=== PATIENT | female | born 1950 | race Caucasian/White ===

== ENCOUNTER 2018-10-29 16:30 | Inpatient (IN) ==
--- NOTE | 2018-10-29 17:08 | ED ---
HPI General Chief Complaint: Shortness of Breath/Dyspnea Stated Complaint: SOB X1wk Time Seen by Provider: 10/29/18 16:52 Source: patient Mode of arrival: ambulatory Limitations: no limitations History of Present Illness The patient is a 68-year-old female who presents to the emergency department via private vehicle for shortness of breath. The patient notes a one -week history of increasing shortness of breath. The patient initially had a decreased appetite and thought it was secondary to a recent change in her diabetic medications that she injects every Saturday. The patient noted decreased appetite last week and, therefore, did not use her medication this past Saturday. However, the patient's shortness of breath and poor appetite continued. The patient now notes shortness of breath that is worse with exertion, notes that she is lightheaded and dizzy when standing upright, and feels like she is going to "pass out ". The patient also endorses subjective fever at home that started 2 days ago with body aches. The patient thought she had influenza at that time. She notes a dry and minimal nonproductive cough. The patient denies any history of COPD, tobacco use, congestive heart failure, pulmonary embolism, DVT, or recent lower extremity edema. The patient denies any vomiting, diarrhea, abdominal pain, or dysuria. She does complain of mild anorexia. MD Complaint: Reports shortness of breath Onset (ago): week(s) Context: Reports occurred during exertion Severity: moderate Consistency/Duration: constant and progressively worsening Relieving factors: rest Exacerbating factors: exertion Associated symptoms: Reports fever, dizziness and lightheadedness Treatment prior to arrival: Reports none Related Data Home oxygen amount: none Home Medications Medication Instructions Recorded Confirmed atorvastatin 40 mg PO DAILY 10/29/18 10/29/18 cetirizine 10 mg PO DAILY 10/29/18 10/29/18 cholecalciferol (vitamin D3) 4,000 unit PO DAILY 10/29/18 10/29/18 [Vitamin D3] cyanocobalamin (vitamin B-12) 1,000 mcg PO DAILY 10/29/18 10/29/18 [Vitamin B-12] dextroamphetamine-amphetamine 10 mg PO BID 10/29/18 10/29/18 [Adderall] fesoterodine [Toviaz] 8 mg PO DAILY 10/29/18 10/29/18 fluticasone 2 spray INTRANASAL DAILY 10/29/18 10/29/18 losartan 50 mg PO DAILY 10/29/18 10/29/18 magnesium 400 mg PO DAILY 10/29/18 10/29/18 metformin 1,000 mg PO BID 10/29/18 10/29/18 semaglutide [Ozempic] 0.5 mg SUBCUT QWEEK 10/29/18 10/29/18 Allergies Allergy/AdvReac Type Severity Reaction Status Date / Time Penicillins Allergy Anaphylaxis Verified 10/29/18 16:50 Review of Systems ROS: all other systems reviewed are negative [facility] Medical History Medical History Diabetes (Acute) H/O multiple concussions (Acute) Leg fracture, right (Acute) Transverse myelitis (Acute) Surgical History Surgical History History of 3 sections (Acute) History of neck surgery (Acute) History of total bilateral knee replacement (TKR) (Acute) Hx of cataract surgery (Acute) Social History Social History Substance History: No History of Abuse Second Hand Smoke Exposure: No Smoking Status: Never smoker How Often Do You Have a Drink Containing Alcohol: 2 to 4 times a month Recent Travel in [facility] within the Last 8 Weeks: No Recent Out of Country Travel within the Last 8 Weeks: No Exam Narrative Exam Narrative: GENERAL: Awake, alert, pleasant 68-year-old female who appears her stated age and is in no acute respiratory distress. SKIN: Focused skin assessment warm/dry. HEAD: Atraumatic. Normocephalic. EYES: Pupils equal and round. No scleral icterus. No injection or drainage. No obvious pallor. ENT: No nasal bleeding or discharge. Dry mucous membranes. NECK: Trachea midline. No JVD. CARDIOVASCULAR: Regular, tachycardic with a heart rate of 110. RESPIRATORY: No accessory muscle use. Clear to auscultation. Breath sounds equal bilaterally. GASTROINTESTINAL: Abdomen soft, non-tender, nondistended. No rebound tenderness. MUSCULOSKELETAL: No obvious deformities. No clubbing. No cyanosis. No edema. NEUROLOGICAL: Awake and alert. No obvious cranial nerve deficits. Motor grossly within normal limits. Normal speech. PSYCHIATRIC: Appropriate mood and affect; insight and judgment normal. Course Initial Documented Vital Signs Pulse Rate 98 H 10/29/18 16:42 Respiratory Rate 18 12/26/18 16:42 Blood Pressure 90/53 L 10/29/18 16:42 Pulse Oximetry 99 10/29/18 16:42 Last Documented Vital Signs Temperature 98.2 F 10/29/18 17:00 Pulse Rate 92 H 10/29/18 18:08 Respiratory Rate 18 10/29/18 18:08 Blood Pressure 96/55 L 10/29/18 18:08 Pulse Oximetry 96 10/29/18 18:08 Medical Decision Making MDM Narrative Medical decision making narrative: IV was established, labs are drawn and sent, and the patient was placed on cardiac telemetry monitoring and continuous pulse oximetry monitoring. Orthostatic vital signs were obtained. Lactic acid, blood culture, and CBC were sent to lab. The was administered 1 L of IV fluids. UA was sent to lab. The patient's white count and lactic acid were within normal limits. BUN was elevated at 36, creatinine elevated at 2.0, orthostatics were positive. Chest x-ray is negative for pneumonia. Influenza screen is negative. Lactic acid was 2.0. The patient has dehydration with acute kidney injury and positive orthostatics with presyncopal symptoms. Therefore, patient will be 23-hour observation for IV fluids. UA is pending to evaluate for possible underlying pyelonephritis. I discussed the patient with Dr. King who agrees with 23-hour observation. The patient is comfortable with this plan of care and disposition. Medical Screen Exam Complete: Yes Emergency Medical Condition: Yes Lab Data Lab results reviewed: Yes I reviewed the patient's lab results. Result diagrams: 10/29/18 17:05 10/29/18 17:05 Lab Results 10/29/18 10/29/18 10/29/18 Range/Units 17:00 17:05 17:05 CBC w Diff Auto diff final WBC 8.3 (4.0-11.0) th/mm3 RBC 4.85 (4.00-5.30) mil/mm3 Hgb 13.9 (11.6-15.3) gm/dL Hct 42.6 (35.0-46.0) % MCV 87.8 (80.0-100.0) fL MCH 28.8 (27.0-34.0) pg MCHC 32.7 (32.0-36.0) % RDW 13.0 (11.6-17.2) % Plt Count 262 (150-450) th/mm3 MPV 9.3 (7.0-11.0) fL Neut % (Auto) 54.2 (16.0-70.0) % Lymph % (Auto) 33.3 (9.0-44.0) % White % (Auto) 9.9 H (0.0-8.0) % Eos % (Auto) 1.0 (0.0-4.0) % Baso % (Auto) 1.6 (0.0-2.0) % Neut # (Auto) 4.5 (1.8-7.7) th/mm3 Lymph # (Auto) 2.8 (1.0-4.8) th/mm3 White # (Auto) 0.8 (0.0-0.9) th/mm3 Eos # (Auto) 0.1 (0.0-0.4) th/mm3 Baso # (Auto) 0.1 (0.0-0.2) th/mm3 WBC Differential . Differential Comment . PT 10.8 (9.8-11.6) sec INR 1.1 Ratio APTT 29.1 (23.4-31.7) sec D-Dimer Quant (PE/DVT) 0.40 (0.00-0.50) mg/L FEU Sodium (136-145) meq/L Potassium (3.5-5.1) meq/L Chloride (98-107) meq/L Carbon Dioxide (21.0-32.0) meq/L Anion Gap (5-15) meq/L BUN (7-18) mg/dL Creatinine (0.50-1.00) mg/dL Estimated GFR (>89) mL/min Random Glucose (74-106) mg/dL Lactic Acid 2.0 (0.4-2.0) mmol/L Calcium (8.5-10.1) mg/dL Magnesium (1.5-2.5) mg/dL Total Bilirubin (0.2-1.0) mg/dL AST (15-37) U/L ALT (10-53) U/L Alkaline Phosphatase (45-117) U/L Total Creatine Kinase (26-192) U/L CK-MB (CK-2) (0.5-3.6) ng/mL Troponin I (0.02-0.05) ng/mL B-Natriuretic Peptide (0-100) pg/mL Total Protein (6.4-8.2) g/dL Albumin (3.4-5.0) g/dL 10/29/18 10/29/18 Range/Units 17:05 17:05 CBC w Diff WBC (4.0-11.0) th/mm3 RBC (4.00-5.30) mil/mm3 Hgb (11.6-15.3) gm/dL Hct (35.0-46.0) % MCV (80.0-100.0) fL MCH (27.0-34.0) pg MCHC (32.0-36.0) % RDW (11.6-17.2) % Plt Count (150-450) th/mm3 MPV (7.0-11.0) fL Neut % (Auto) (16.0-70.0) % Lymph % (Auto) (9.0-44.0) % White % (Auto) (0.0-8.0) % Eos % (Auto) (0.0-4.0) % Baso % (Auto) (0.0-2.0) % Neut # (Auto) (1.8-7.7) th/mm3 Lymph # (Auto) (1.0-4.8) th/mm3 White # (Auto) (0.0-0.9) th/mm3 Eos # (Auto) (0.0-0.4) th/mm3 Baso # (Auto) (0.0-0.2) th/mm3 WBC Differential Differential Comment PT (9.8-11.6) sec INR Ratio APTT (23.4-31.7) sec D-Dimer Quant (PE/DVT) (0.00-0.50) mg/L FEU Sodium 136 (136-145) meq/L Potassium 4.1 (3.5-5.1) meq/L Chloride 104 (98-107) meq/L Carbon Dioxide 20.0 L (21.0-32.0) meq/L Anion Gap 12 (5-15) meq/L BUN 36 H (7-18) mg/dL Creatinine 2.00 H (0.50-1.00) mg/dL Estimated GFR 25 L (>89) mL/min Random Glucose 91 (74-106) mg/dL Lactic Acid (0.4-2.0) mmol/L Calcium 9.4 (8.5-10.1) mg/dL Magnesium 1.9 (1.5-2.5) mg/dL Total Bilirubin 1.2 H (0.2-1.0) mg/dL AST 32 (15-37) U/L ALT 23 (10-53) U/L Alkaline Phosphatase 65 (45-117) U/L Total Creatine Kinase 126 (26-192) U/L CK-MB (CK-2) 1.3 (0.5-3.6) ng/mL Troponin I Less than 0.02 L (0.02-0.05) ng/mL B-Natriuretic Peptide 5 (0-100) pg/mL Total Protein 7.7 (6.4-8.2) g/dL Albumin 4.0 (3.4-5.0) g/dL Imaging Data Attestation: I personally reviewed and interpreted this imaging study as follows : Radiologist's impression: Chest X-Ray 10/29/18 17:02 CONCLUSION: No acute intrathoracic disease. ECG Data EKG Prior to Arrival: No Attestation: I personally reviewed and interpreted this ECG as follows: Interpretation: EKG reveals sinus rhythm with a rate of 98. No ectopy noted. Discharge Plan Discharge Disposition Patient Disposition: ED Admit(ED Internal Use Only) Discharge Condition Condition: Stable Discharge Order Discharge Orders: ED Use Only Admit Order (Routine); Ordered 10/29/18 Ordered By: Onel Duque Discharge Details Diagnosis: Acute kidney injury, Acute dehydration, Orthostatic hypotension, Pre-syncope Physicians Team ED Provider: Onel Duque Primary Care Provider: Primary Care Physici,Makayla Rxs /Orders / Referrals /Forms Prescriptions: No Action semaglutide [Ozempic] 1 mg/0.75 mL (2 mg/1.5 mL) Pen Injector 0.5 mg SUBCUT QWEEK RF: 0 losartan 50 mg Tablet 50 mg PO DAILY RF: 0 atorvastatin 40 mg Tablet 40 mg PO DAILY RF: 0 cetirizine 10 mg Tablet 10 mg PO DAILY RF: 0 dextroamphetamine-amphetamine [Adderall] 10 mg Tablet 10 mg PO BID RF: 0 cyanocobalamin (vitamin B-12) [Vitamin B-12] 1,000 mcg Tablet 1,000 mcg PO DAILY RF: 0 metformin 1,000 mg Tablet 1,000 mg PO BID RF: 0 fluticasone 50 mcg/actuation Fowler,Suspension 2 spray INTRANASAL DAILY RF: 0 magnesium 200 mg Tablet 400 mg PO DAILY RF: 0 fesoterodine [Toviaz] 8 mg Tablet Extended Release 24 Hr 8 mg PO DAILY RF: 0 cholecalciferol (vitamin D3) [Vitamin D3] 4,000 unit Capsule 4,000 unit PO DAILY RF: 0 Discharge Interventions Interventions: Vital Signs Last Done: 10/29/18 17:50 Status ED Status: Pending Admission
[2018-10-29] MEDS ORDERED: Sod Chloride 0.9% Inj 1,000 ML IV.SIG SCH ×2 (17:15→18:00)
[2018-10-29 17:25] LABS: Baso # (Auto) 0.1 th/mm3 (0.0-0.2); Baso % (Auto) 1.6 % (0.0-2.0); Eos # (Auto) 0.1 th/mm3 (0.0-0.4); Hematocrit 42.6 % (35.0-46.0); Hemoglobin 13.9 gm/dL (11.6-15.3); Lymph # (Auto) 2.8 th/mm3 (1.0-4.8); Lymph % (Auto) 33.3 % (9.0-44.0); Mean Corpuscular HGB Conc 32.7 % (32.0-36.0); Mean Corpuscular Hemoglobin 28.8 pg (27.0-34.0); Mean Corpuscular Volume 87.8 fL (80.0-100.0); Mean Platelet Volume 9.3 fL (7.0-11.0); Mono # (Auto) 0.8 th/mm3 (0.0-0.9); Mono % (Auto) 9.9 % (0.0-8.0); Neut # (Auto) 4.5 th/mm3 (1.8-7.7); Neut % (Auto) 54.2 % (16.0-70.0); Platelet Count 262 th/mm3 (150-450); Red Blood Count 4.85 mil/mm3 (4.00-5.30); White Blood Count 8.3 th/mm3 (4.0-11.0)
[2018-10-29 17:32] LABS: Chloride 104 meq/L (98-107); Potassium 4.1 meq/L (3.5-5.1); Sodium 136 meq/L (136-145)
--- NOTE | 2018-10-29 17:33 | XR ---
EXAM DATE: 10/29/2018 5:30 PM EST AGE/SEX: 68 years / Female INDICATIONS: Short of breath. CLINICAL DATA: This is the patient's initial encounter. Patient reports that signs and symptoms have been present for 1 week and indicates a pain score of 0/10. MEDICAL/SURGICAL HISTORY: None. None. COMPARISON: No prior exams available for comparison. FINDINGS: A single AP view of the chest demonstrates the lungs to be symmetrically aerated without evidence of mass, infiltrate or effusion. The cardiomediastinal contours are unremarkable. Osseous structures a re intact. CONCLUSION: No acute intrathoracic disease. Electronically signed by: Doron Reyes MD Board Certified Radiologist 10/29/2018 5:32 PM EST
[2018-10-29 17:36] LABS: Anion Gap 12 meq/L (5-15); Blood Urea Nitrogen 36 mg/dL (7-18); Calcium 9.4 mg/dL (8.5-10.1); Glucose,Random 91 mg/dL (74-106); Magnesium 1.9 mg/dL (1.5-2.5)
[2018-10-29 17:39] LABS: Alanine Aminotransferase 23 U/L (10-53); Aspartate Aminotransferase 32 U/L (15-37)
[2018-10-29 17:40] LABS: Glomerular Filtration Rate 25 mL/min (>89)
[2018-10-29 17:41] LABS: Total Protein 7.7 g/dL (6.4-8.2)
[2018-10-29 17:42] LABS: Alkaline Phosphatase 65 U/L (45-117); Creatine Kinase 126 U/L (26-192)
[2018-10-29 17:52] LABS: Activated Partial Thrombo Time 29.1 sec (23.4-31.7); INR 1.1 Ratio; Prothrombin Time 10.8 sec (9.8-11.6)
[2018-10-29 17:54] LABS: Creatine Kinase MB 1.3 ng/mL (0.5-3.6)
[2018-10-29 17:56] LABS: D-Dimer 0.4 mg/L FEU (0.00-0.50)
[2018-10-29] MEDS ORDERED: Acetaminophen 325 MG Tablet PO PRN ×2 (18:10→18:25)
[2018-10-29] MEDS ORDERED: Bisacodyl 10 MG Supp RECTAL PRN (18:10)
[2018-10-29] MEDS ORDERED: Dextrose 50% in Water 50 ML Vial IV.PUSH PRN (18:15)
[2018-10-29] MEDS ORDERED: Temazepam 15 MG Capsule PO PRN (18:39)
--- NOTE | 2018-10-29 18:48 | P.HPIM ---
History of Present Illness Primary Care Physician: No Primary Care Physician History of Present Illness: 60-year-old female with a history of transverse myelitis, diabetes mellitus, who presents with a 10-day history of decreased appetite, with a one-week history of progressively worsening fatigue, lightheadedness upon standing, generalized muscle aches, feeling cold with chills, shortness of breath. She denies any cough, denies any sore throat. denies any dysuria or urinary hesitancy. She reports very minimal by mouth intake of food and fluids. She took her first dose of Ozempic on e says this medication is supposed to be taken weekly, however due to the severe decrease in appetite she did not take her most recent dose. Review of Systems All other systems reviewed negative except as stated in [facility] - History History Provided By: Patient, Family Member - Medical History Medical History: Medical History (Last Reviewed 10/29/18 @ 18:37 by John King MD) Diabetes H/O multiple concussions Leg fracture, right Transverse myelitis - Surgical History Surgical History: Surgical History (Last Reviewed 10/29/18 @ 18:37 by John King MD) History of 3 sections History of neck surgery History of total bilateral knee replacement (TKR) Hx of cataract surgery - Family History Family History: Family History (Last Updated 10/29/18 @ 18:38 by John King MD) Father Diabetes Mother CHF (congestive heart failure) - Social History I have reviewed the patient's Social History: Yes - Tobacco History Second Hand Smoke Exposure: No Smoking Status: Never smoker - Alcohol History How Often Do You Have a Drink Containing Alcohol: 2 to 4 times a month - Substance Use History Substance History: No History of Abuse - Travel History Recent Travel in the [place] Within the Last 8 Weeks: No Recent Travel Out of the Country Within the Last 8 Weeks: No - Immunization History Tetanus Immunization: <5 Years Medications and Allergies Active Medications: Active Medications Acetaminophen (Tylenol) 650 mg PO Q4H PRN PRN Reason: Temp > 100.4 Al Hydroxide/Mg Hydroxide (Milk Of Magnesia Liq) 30 ml PO Q12H PRN PRN Reason: Mild Constipation Bisacodyl (Dulcolax Supp) 10 mg RECTAL DAILY PRN PRN Reason: SEVERE CONSITIPATION Cyanocobalamin (Vitamin B12) 1,000 mcg PO DAILY JINA Dextrose (D50w Vial) 50 ml IV.PUSH UNSCH PRN PRN Reason: PER HYPOGLYCEMIA PROTOCOL Glucagon (Glucagon Inj) 1 mg OTHER PRN PRN PRN Reason: for Hypoglycemia Protocol Sodium Chloride (Ns Inj) 1,000 mls @ 1,000 mls/hr IV.SIG BOLUS JINA Stop: 10/29/18 18:59 Last Admin: 10/29/18 18:01 Dose: 1,000 mls/hr Sodium Chloride (Ns Inj) 1,000 mls @ 150 mls/hr IV.CONT .[id number] [facility] Insulin Aspart (Novolog Insulin Correctional Sugar Inj) 0 unit SQ ACHS JINA; Protocol Lactulose (Lactulose Liq) 30 ml PO DAILY PRN PRN Reason: SEVERE CONSITIPATION Ondansetron HCl (Zofran Inj) 4 mg IV.PUSH Q6H PRN PRN Reason: NAUSEA OR VOMITING Sennosides (Senokot) 17.2 mg PO Q12H PRN PRN Reason: Moderate Constipation Sodium Chloride (Ns Flush) 2 ml IV.FLUSH BID JINA Sodium Chloride (Ns Flush) 2 ml IV.FLUSH PRN PRN PRN Reason: FLUSH AFTER USING IV ACCESS Allergies Allergy/AdvReac Type Severity Reaction Status Date / Time Penicillins Allergy Anaphylaxis Verified 10/29/18 16:50 Home Medications Medication Instructions Recorded Confirmed Type atorvastatin 40 mg PO DAILY 10/29/18 10/29/18 History cetirizine 10 mg PO DAILY 10/29/18 10/29/18 History cholecalciferol (vitamin D3) 4,000 unit PO DAILY 10/29/18 10/29/18 History [Vitamin D3] cyanocobalamin (vitamin B-12) 1,000 mcg PO DAILY 10/29/18 10/29/18 History [Vitamin B-12] dextroamphetamine-amphetamine 10 mg PO BID 10/29/18 10/29/18 History [Adderall] fesoterodine [Toviaz] 8 mg PO DAILY 10/29/18 10/29/18 History fluticasone 2 spray INTRANASAL DAILY 10/29/18 10/29/18 History losartan 50 mg PO DAILY 10/29/18 10/29/18 History magnesium 400 mg PO DAILY 10/29/18 10/29/18 History metformin 1,000 mg PO BID 10/29/18 10/29/18 History semaglutide [Ozempic] 0.5 mg SUBCUT QWEEK 10/29/18 10/29/18 History Exam Vital signs: Vital Signs 10/29/18 16:42 10/29/18 17:00 10/29/18 17:25 Temperature 98.2 F Pulse Rate 98 H 97 H 94 H Respiratory Rate 18 24 Blood Pressure 90/53 L 79/60 L 85/50 L Pulse Oximetry 99 99 99 10/29/18 17:32 10/29/18 17:50 10/29/18 18:08 Temperature Pulse Rate 93 H 95 H 92 H Respiratory Rate 18 18 Blood Pressure 85/57 L 96/55 L Pulse Oximetry 98 96 96 Intake & Output 10/28/18 10/29/18 10/29/18 18:59 06:59 18:59 Weight 65.5 kg Narrative: GENERAL: Patient sitting up in bed. Appears fatigued. She is alert and oriented x3. SKIN: Warm and dry. HEAD: Atraumatic. Normocephalic. EYES: Pupils equal and round. No scleral icterus. No injection or drainage. ENT: No nasal bleeding or discharge. Mucous membranes pink and moist. NECK: Trachea midline. No JVD. CARDIOVASCULAR: Regular rate and rhythm. RESPIRATORY: No accessory muscle use. Clear to auscultation. Breath sounds equal bilaterally. GASTROINTESTINAL: Abdomen soft, non-tender, nondistended. Hepatic and splenic margins not palpable. MUSCULOSKELETAL: Extremities without clubbing, cyanosis, or edema. No obvious deformities. NEUROLOGICAL: Awake and alert. No obvious cranial nerve deficits. Motor grossly within normal limits. Five out of 5 muscle strength in the arms and legs. Normal speech. PSYCHIATRIC: Appropriate mood and affect; insight and judgment normal. Results - Labs CBC & Chem 7: 10/29/18 17:05 10/29/18 17:05 Labs: Short CBC 10/29/18 Range/Units 17:05 WBC 8.3 (4.0-11.0) th/mm3 Hgb 13.9 (11.6-15.3) gm/dL Hct 42.6 (35.0-46.0) % Plt Count 262 (150-450) th/mm3 BMP 10/29/18 17:05 Sodium 136 Potassium 4.1 Chloride 104 Carbon Dioxide 20.0 L BUN 36 H Creatinine 2.00 H Calcium 9.4 Cardiac Enzymes 10/29/18 Range/Units 17:05 Total Creatine Kinase 126 (26-192) U/L CK-MB (CK-2) 1.3 (0.5-3.6) ng/mL Troponin I Less than 0.02 L (0.02-0.05) ng/mL Liver Function 10/29/18 Range/Units 17:05 Total Bilirubin 1.2 H (0.2-1.0) mg/dL AST 32 (15-37) U/L ALT 23 (10-53) U/L Alkaline Phosphatase 65 (45-117) U/L Albumin 4.0 (3.4-5.0) g/dL - Imaging Impressions Chest X-Ray 10/29/18 17:02 CONCLUSION: No acute intrathoracic disease. Caprini VTE Risk Assessment Caprini VTE Risk Assessment: Moderate/High Risk (score >= 2) Caprini Risk Assessment Model: Point Value = 1 Point Value = 2 Point Value = 3 Point Value = 5 Age 41-60 Minor surgery BMI > 25 kg/m2 Swollen legs Varicose veins or History of unexplained or recurrent spontaneous Oral contraceptives or hormone replacement Sepsis (< 1 month) Serious lung disease, including pneumonia (< 1 month) Abnormal pulmonary function Acute myocardial infarction Congestive heart failure (< 1 month) History of inflammatory bowel disease Medical patient at bed rest Age 61-74 Arthroscopic surgery Major open surgery (> 45 min) Laparoscopic surgery (> 45 min) Malignancy Confined to bed (> 72 hours) Immobilizing plaster cast Central venous access Age >= 75 History of VTE Family history of VTE Factor V Leiden Prothrombin [id number] Lupus anticoagulant Anticardiolipin antibodies Elevated serum homocysteine Heparin-induced thrombocytopenia Other congenital or acquired thrombophilia Stroke (< 1 month) Elective arthroplasty Hip, pelvis, or leg fracture Acute spinal cord injury (< 1 month) Prophylaxis Regimen: Total Risk Factor Score Risk Level Prophylaxis Regimen 0-1 Low Early ambulation 2 Moderate Order ONE of the following: *Sequential Compression Device (SCD) *Heparin 5000 units SQ BID 3-4 Higher Order ONE of the following medications: *Heparin 5000 units SQ TID *Enoxaparin/Lovenox 40 mg SQ daily (WT < 150 kg, CrCl > 30 mL/min) *Enoxaparin/Lovenox 30 mg SQ daily (WT < 150 kg, CrCl > 10-29 mL/min) *Enoxaparin/Lovenox 30 mg SQ BID (WT < 150 kg, CrCl > 30 mL/min) AND/OR *Sequential Compression Device (SCD) 5 or more Highest Order ONE of the following medications: *Heparin 5000 units SQ TID (Preferred with Epidurals) *Enoxaparin/Lovenox 40 mg SQ daily (WT < 150 kg, CrCl > 30 mL/min) *Enoxaparin/Lovenox 30 mg SQ daily (WT < 150 kg, CrCl > 10-29 mL/min) *Enoxaparin/Lovenox 30 mg SQ BID (WT < 150 kg, CrCl > 30 mL/min) AND *Sequential Compression Device (SCD) Assessment and Plan - Plan //Acute kidney injury //Severe dehydration with hypotension //Hypotension -Hold off on blood pressure medications. -Creatinine 2.0 from unknown baseline. -Likely dehydration is from decreased appetite from the liraglutide. -Hold off on amphetamines as well. = Fluid rehydration. If does not improve with rehydration, will check renal ultrasound. Monitor kidney function. //Diffuse muscle aches. Likely secondary to dehydration. CK within normal limits. Will hold off on statin. //Diabetes mellitus -Glucose within normal limits. Will place on insulin sliding scale and diabetic diet. //Overactive bladder. Will hold off on medication at this time. //Insomnia. Will start on insomnia medication as requested. Discussed Condition With: Patient, nurse, ED physician, daughter at bedside
[2018-10-29] MEDS: Sod Chloride 0.9% Inj 1,000 ML IV.CONT SCH (19:23)
[2018-10-29 21:35] LABS: Hemoglobin A1c 5.6 % (4.3-6.0)
[2018-10-29] MEDS: Insulin NovoLOG Aspart Correctional Sugar Inj SQ SCH (22:38)
[2018-10-30] MEDS: Sod Chloride 0.9% Inj 1,000 ML IV.CONT SCH ×2 (03:23→08:46)
--- NOTE | 2018-10-30 08:30 | ECG ---
Date Performed: 10/29/2018 Time Performed: 17:21:28 PTAGE: 68 years EKG: Sinus rhythm POSSIBLE ANTERIOR MYOCARDIAL INFARCTION BORDERLINE ECG NO PREVIOUS TRACING DOCTOR: Kelly Jim Interpretating Date/Time 10/30/2018 08:26:40
[2018-10-30] MEDS: Insulin NovoLOG Aspart Correctional Sugar Inj SQ SCH ×3 (08:46→17:16)
[2018-10-30 09:22] LABS: Baso # (Auto) 0.1 th/mm3 (0.0-0.2); Baso % (Auto) 1.9 % (0.0-2.0); Eos # (Auto) 0.1 th/mm3 (0.0-0.4); Eos % (Auto) 2.9 % (0.0-4.0); Hematocrit 34.7 % (35.0-46.0); Hemoglobin 11.4 gm/dL (11.6-15.3); Lymph # (Auto) 2.3 th/mm3 (1.0-4.8); Lymph % (Auto) 44.9 % (9.0-44.0); Mean Corpuscular HGB Conc 32.9 % (32.0-36.0); Mean Corpuscular Hemoglobin 28.8 pg (27.0-34.0); Mean Corpuscular Volume 87.4 fL (80.0-100.0); Mean Platelet Volume 8.9 fL (7.0-11.0); Mono # (Auto) 0.4 th/mm3 (0.0-0.9); Mono % (Auto) 8.8 % (0.0-8.0); Neut # (Auto) 2.1 th/mm3 (1.8-7.7); Neut % (Auto) 41.5 % (16.0-70.0); Platelet Count 196 th/mm3 (150-450); Red Blood Count 3.97 mil/mm3 (4.00-5.30)
[2018-10-30 09:34] VITALS: BP 115/55; RESP 16
[2018-10-30 10:07] LABS: Alanine Aminotransferase 21 U/L (10-53); Albumin 2.9 g/dL (3.4-5.0); Anion Gap 7 meq/L (5-15); Aspartate Aminotransferase 20 U/L (15-37); Blood Urea Nitrogen 24 mg/dL (7-18); Calcium 7.8 mg/dL (8.5-10.1); Carbon Dioxide 23.8 meq/L (21.0-32.0); Chloride 113 meq/L (98-107); Glomerular Filtration Rate 55 mL/min (>89); Glucose,Random 96 mg/dL (74-106); Potassium 3.9 meq/L (3.5-5.1); Sodium 144 meq/L (136-145); Total Protein 5.9 g/dL (6.4-8.2)
[2018-10-30 10:14] LABS: Alkaline Phosphatase 53 U/L (45-117)
[2018-10-30 10:20] LABS: Bilirubin,Urine Negative (Negative); Clarity,Urine Clear (Clear); Color,Urine Yellow (Yellw/Straw); Glucose,Urine (UA) Negative (Negative); Leukocyte Esterase,Urine Trace (Negative); Nitrite,Urine Positive (Negative); PH,Urine 5.5 (5.0-8.5); Urobilinogen,Urine 0.2 mg/dL (Less than 2)
[2018-10-30 10:25] LABS: Bacteria,Urine Few /hpf
--- NOTE | 2018-10-30 11:58 | P.PNIM ---
Subjective Interval history: Patient says she is feeling a lot better today. She feels her appetite has improved. Denies any chest pain shortness breath. Denies nausea or vomiting. Physical Exam Vital signs: Vital Signs 10/29/18 16:42 10/29/18 17:00 10/29/18 17:25 Temperature 98.2 F Pulse Rate 98 H 97 H 94 H Respiratory Rate 18 24 Blood Pressure 90/53 L 79/60 L 85/50 L Pulse Oximetry 99 99 99 10/29/18 17:32 10/29/18 17:50 10/29/18 18:08 Temperature Pulse Rate 93 H 95 H 92 H Respiratory Rate 18 18 Blood Pressure 85/57 L 96/55 L Pulse Oximetry 98 96 96 10/29/18 18:28 10/29/18 19:05 10/29/18 19:30 Temperature Pulse Rate 94 H 93 H Respiratory Rate 18 18 Blood Pressure 100/57 L 123/65 100/76 Pulse Oximetry 10/29/18 20:40 10/30/18 00:00 10/30/18 07:30 Temperature 96.6 F L 97.2 F L Pulse Rate 91 H 92 H Respiratory Rate 18 18 Blood Pressure 132/66 117/56 L Pulse Oximetry 100 99 98 10/30/18 09:33 Temperature 97.4 F L Pulse Rate 77 Respiratory Rate 16 Blood Pressure 115/55 L Pulse Oximetry 96 Intake & Output 10/29/18 10/30/18 10/30/18 18:59 06:59 18:59 Intake Total 3000 / 3000 1240 / 1240 Balance 3000 / 3000 1240 / 1240 Weight 65.5 kg 62.9 kg Intake: IV 3000 / 3000 1000 / 1000 NS Inj 1,000 ML @ 150 mls/hr IV 1000 / 1000 1000 / 1000 .CONT .Q6H40M JINA Rx#: [id number] NS Inj 1,000 ML @ 1000 mls/hr 1999 / 1999 IV.SIG BOLUS JINA Rx#:[id number] Oral 240 / 240 Other: # Voids 2 Date of Last Bowel Movement 10/29/18 Narrative: GENERAL: Patient sitting in bed. Appears comfortable. Alert and oriented x3. SKIN: Warm and dry. HEAD: Normocephalic. EYES: No scleral icterus. No injection or drainage. NECK: Supple, trachea midline. No JVD or lymphadenopathy. CARDIOVASCULAR: Regular rate and rhythm without murmurs, gallops, or rubs. RESPIRATORY: Breath sounds equal bilaterally. No accessory muscle use. GASTROINTESTINAL: Abdomen soft, non-tender, nondistended. MUSCULOSKELETAL: No cyanosis, or edema. BACK: Nontender without obvious deformity. No CVA tenderness. Results - Labs CBC & Chem 7: 10/30/18 08:20 10/30/18 08:20 Laboratory Results - last 24 hr 10/29/18 10/29/18 10/29/18 17:00 17:00 17:05 CBC w Diff Auto diff final WBC 8.3 RBC 4.85 Hgb 13.9 Hct 42.6 MCV 87.8 MCH 28.8 MCHC 32.7 RDW 13.0 Plt Count 262 MPV 9.3 Neut % (Auto) 54.2 Lymph % (Auto) 33.3 [place] % (Auto) 9.9 H Eos % (Auto) 1.0 Baso % (Auto) 1.6 Neut # (Auto) 4.5 Lymph # (Auto) 2.8 [place] # (Auto) 0.8 Eos # (Auto) 0.1 Baso # (Auto) 0.1 WBC Differential . Differential Comment . PT INR APTT D-Dimer Quant (PE/DVT) Sodium Potassium Chloride Carbon Dioxide Anion Gap BUN Creatinine Estimated GFR POC Glucose Random Glucose Hemoglobin A1c 5.6 Lactic Acid 2.0 Calcium Magnesium Total Bilirubin Direct Bilirubin Indirect Bilirubin AST ALT Alkaline Phosphatase Total Creatine Kinase CK-MB (CK-2) Troponin I B-Natriuretic Peptide Total Protein Albumin Urine Color Urine Clarity Urine pH Ur Specific [place] Urine Protein Urine Glucose (UA) Urine Ketones Urine Occult Blood Urine Nitrate Urine Bilirubin Urine Urobilinogen Ur Leukocyte Esterase Urine Bacteria Micro UA Comment Ur Microscopic Review Urine Culture Comments 10/29/18 10/29/18 10/29/18 17:05 17:05 17:05 CBC w Diff WBC RBC Hgb Hct MCV MCH MCHC RDW Plt Count MPV Neut % (Auto) Lymph % (Auto) [place] % (Auto) Eos % (Auto) Baso % (Auto) Neut # (Auto) Lymph # (Auto) [place] # (Auto) Eos # (Auto) Baso # (Auto) WBC Differential Differential Comment PT 10.8 INR 1.1 APTT 29.1 D-Dimer Quant (PE/DVT) 0.40 Sodium 136 Potassium 4.1 Chloride 104 Carbon Dioxide 20.0 L Anion Gap 12 BUN 36 H Creatinine 2.00 H Estimated GFR 25 L POC Glucose Random Glucose 91 Hemoglobin A1c Lactic Acid Calcium 9.4 Magnesium 1.9 Total Bilirubin 1.2 H Direct Bilirubin 0.3 H Indirect Bilirubin 0.9 H AST 32 ALT 23 Alkaline Phosphatase 65 Total Creatine Kinase 126 CK-MB (CK-2) 1.3 Troponin I Less than 0.02 L B-Natriuretic Peptide 5 Total Protein 7.7 Albumin 4.0 Urine Color Urine Clarity Urine pH Ur Specific [place] Urine Protein Urine Glucose (UA) Urine Ketones Urine Occult Blood Urine Nitrate Urine Bilirubin Urine Urobilinogen Ur Leukocyte Esterase Urine Bacteria Micro UA Comment Ur Microscopic Review Urine Culture Comments 10/29/18 10/30/18 10/30/18 22:37 00:04 07:00 CBC w Diff WBC RBC Hgb Hct MCV MCH MCHC RDW Plt Count MPV Neut % (Auto) Lymph % (Auto) [place] % (Auto) Eos % (Auto) Baso % (Auto) Neut # (Auto) Lymph # (Auto) [place] # (Auto) Eos # (Auto) Baso # (Auto) WBC Differential Differential Comment PT INR APTT D-Dimer Quant (PE/DVT) Sodium Potassium Chloride Carbon Dioxide Anion Gap BUN Creatinine Estimated GFR POC Glucose 65 L 96 Random Glucose Hemoglobin A1c Lactic Acid Calcium Magnesium Total Bilirubin Direct Bilirubin Indirect Bilirubin AST ALT Alkaline Phosphatase Total Creatine Kinase CK-MB (CK-2) Troponin I B-Natriuretic Peptide Total Protein Albumin Urine Color Yellow Urine Clarity Clear Urine pH 5.5 Ur Specific [place] 1.010 Urine Protein Negative Urine Glucose (UA) Negative Urine Ketones Negative Urine Occult Blood Negative Urine Nitrate Positive H Urine Bilirubin Negative Urine Urobilinogen 0.2 Ur Leukocyte Esterase Trace H Urine Bacteria Few H Micro UA Comment Culture indicated Ur Microscopic Review Microscopic reviewed Urine Culture Comments Culture indicated 10/30/18 10/30/18 10/30/18 08:20 08:20 08:38 CBC w Diff Auto diff final WBC 5.0 RBC 3.97 L Hgb 11.4 L D Hct 34.7 L MCV 87.4 MCH 28.8 MCHC 32.9 RDW 13.0 Plt Count 196 MPV 8.9 Neut % (Auto) 41.5 Lymph % (Auto) 44.9 H [place] % (Auto) 8.8 H Eos % (Auto) 2.9 Baso % (Auto) 1.9 Neut # (Auto) 2.1 Lymph # (Auto) 2.3 [place] # (Auto) 0.4 Eos # (Auto) 0.1 Baso # (Auto) 0.1 WBC Differential . Differential Comment . PT INR APTT D-Dimer Quant (PE/DVT) Sodium 144 Potassium 3.9 Chloride 113 H D Carbon Dioxide 23.8 Anion Gap 7 BUN 24 H Creatinine 1.00 Estimated GFR 55 L POC Glucose 97 Random Glucose 96 Hemoglobin A1c Lactic Acid Calcium 7.8 L D Magnesium Total Bilirubin 0.8 Direct Bilirubin Indirect Bilirubin AST 20 ALT 21 Alkaline Phosphatase 53 Total Creatine Kinase CK-MB (CK-2) Troponin I B-Natriuretic Peptide Total Protein 5.9 L D Albumin 2.9 L D Urine Color Urine Clarity Urine pH Ur Specific [place] Urine Protein Urine Glucose (UA) Urine Ketones Urine Occult Blood Urine Nitrate Urine Bilirubin Urine Urobilinogen Ur Leukocyte Esterase Urine Bacteria Micro UA Comment Ur Microscopic Review Urine Culture Comments Microbiology 10/29/18 17:05 Blood - Peripheral Aerobic Blood Culture - Preliminary No growth in 1 day 10/29/18 17:05 Blood - Peripheral Anaerobic Blood Culture - Preliminary No growth in 1 day 10/29/18 17:00 Blood - Peripheral Aerobic Blood Culture - Preliminary No growth in 1 day 10/29/18 17:00 Blood - Peripheral Anaerobic Blood Culture - Preliminary No growth in 1 day 10/29/18 17:10 Nasal Wash Influenza Types A,B Antigen - Final Negative for FLU A and B antigen Infection due to influenza A or B cannot be ruled out since the antigen present in the sample may be below the detection limit of the test. - Imaging Impressions Chest X-Ray 10/29/18 17:02 CONCLUSION: No acute intrathoracic disease. Assessment and Plan - Plan //Acute kidney injury //Severe dehydration with hypotension //Hypotension -Hold off on blood pressure medications. -Creatinine 2.0 from unknown baseline. -Likely dehydration is from decreased appetite from the liraglutide. -Hold off on amphetamines as well. = Fluid rehydration. If does not improve with rehydration, will check renal ultrasound. Monitor kidney function. = 10/30. Much improved. Continue IV fluids. We will see how patient tolerates lunch and hopefully discharge this afternoon. Close follow-up with primary care. Patient conveys understanding. Continue to hold losartan. //Diffuse muscle aches. Likely secondary to dehydration. CK within normal limits. Will hold off on statin. = Improving. Continue to hold off on statin. Can follow-up with primary care to consider restarting. //Diabetes mellitus -Glucose within normal limits. Will place on insulin sliding scale and diabetic diet. = A1c is 5.6 in nondiabetic range. Really patient does not need aggressive treatment at this time. She needs close follow-up with primary care. //Overactive bladder. Will hold off on medication at this time. //Anemia. This is dilutional secondary to fluids. No signs of bleeding. //Insomnia. Will start on insomnia medication as requested. Discussed Condition With: Patient, nurse Discharge Planning: Will be discharged this afternoon if tolerates lunch and hydrating well.
[2018-10-30] MEDS ORDERED: Sodium Chloride 0.45 % Inj 500 ML IV.SIG ONE (12:00)
[2018-10-30] MEDS ORDERED: Sodium Chloride 0.45 % Inj 1,000 ML IV.CONT SCH (12:00)
[2018-10-30 14:52] VITALS: PULSE 75; TEMP 96.7; O2SAT 100
--- NOTE | 2018-10-30 15:06 | P.DS ---
Date of admission: 10/29/18 18:15 Primary care physician: No Primary Care Physician Brief History from admission: 60-year-old female with a history of transverse myelitis, diabetes mellitus, who presents with a 10-day history of decreased appetite, with a one-week history of progressively worsening fatigue, lightheadedness upon standing, generalized muscle aches, feeling cold with chills, shortness of breath. She denies any cough, denies any sore throat. denies any dysuria or urinary hesitancy. She reports very minimal by mouth intake of food and fluids. She took her first dose of Ozempic on 10/20she says this medication is supposed to be taken weekly, however due to the severe decrease in appetite she did not take her most recent dose. DS: Summary Hospital Course: //Acute kidney injury //Severe dehydration with hypotension //Hypotension -Hold off on blood pressure medications. -Creatinine 2.0 from unknown baseline. -Likely dehydration is from decreased appetite from the liraglutide. -Hold off on amphetamines as well. = Fluid rehydration. If does not improve with rehydration, will check renal ultrasound. Monitor kidney function. = 10/30. Much improved. Continue IV fluids. We will see how patient tolerates lunch and hopefully discharge this afternoon. Close follow-up with primary care. Patient conveys understanding. Continue to hold losartan. //Diffuse muscle aches. Likely secondary to dehydration. CK within normal limits. Will hold off on statin. = Improving. Continue to hold off on statin. Can follow-up with primary care to consider restarting. //Diabetes mellitus -Glucose within normal limits. Will place on insulin sliding scale and diabetic diet. = A1c is 5.6 in nondiabetic range. Really patient does not need aggressive treatment at this time. She needs close follow-up with primary care. //Overactive bladder. Will hold off on medication at this time. //Anemia. This is dilutional secondary to fluids. No signs of bleeding. //Insomnia. Will start on insomnia medication as requested. - Time Spent with Patient Total time spent providing and/or coordinating discharge services: Greater than 30 minutes Exam Vital signs: Vital Signs 10/29/18 16:42 10/29/18 17:00 10/29/18 17:25 Temperature 98.2 F Pulse Rate 98 H 97 H 94 H Respiratory Rate 18 24 Blood Pressure 90/53 L 79/60 L 85/50 L Pulse Oximetry 99 99 99 10/29/18 17:32 10/29/18 17:50 10/29/18 18:08 Temperature Pulse Rate 93 H 95 H 92 H Respiratory Rate 18 18 Blood Pressure 85/57 L 96/55 L Pulse Oximetry 98 96 96 10/29/18 18:28 10/29/18 19:05 10/29/18 19:30 Temperature Pulse Rate 94 H 93 H Respiratory Rate 18 18 Blood Pressure 100/57 L 123/65 100/76 Pulse Oximetry 10/29/18 20:40 10/30/18 00:00 10/30/18 07:30 Temperature 96.6 F L 97.2 F L Pulse Rate 91 H 92 H Respiratory Rate 18 18 Blood Pressure 132/66 117/56 L Pulse Oximetry 100 99 98 10/30/18 09:33 10/30/18 14:52 Temperature 97.4 F L 96.7 F L Pulse Rate 77 75 Respiratory Rate 16 16 Blood Pressure 115/55 L 115/55 L Pulse Oximetry 96 100 Intake & Output 10/29/18 10/30/18 10/30/18 18:59 06:59 18:59 Intake Total 3000 / 3000 2740 / 2740 Balance 3000 / 3000 2740 / 2740 Weight 65.5 kg 62.9 kg Intake: IV 3000 / 3000 2500 / 2500 NS Inj 1,000 ML @ 150 mls/hr IV 1000 / 1000 1999 / 2000 .CONT .Q6H40M JINA Rx#: [id number] NS Inj 1,000 ML @ 1000 mls/hr 1999 / 1999 IV.SIG BOLUS JINA Rx#:[id number] 1/2 Normal Saline Inj 500 ML @ 500 / 500 Wide Open IV.SIG BOLUS ONE Rx#: [id number] Oral 240 / 240 Other: # Voids 2 Date of Last Bowel Movement 10/29/18 Results Labs on day of discharge: Labs from last 24 hours 10/30/18 10/30/18 10/30/18 11:46 08:38 08:20 CBC w Diff WBC RBC Hgb Hct MCV MCH MCHC RDW Plt Count MPV Neut % (Auto) Lymph % (Auto) [place] % (Auto) Eos % (Auto) Baso % (Auto) Neut # (Auto) Lymph # (Auto) [place] # (Auto) Eos # (Auto) Baso # (Auto) WBC Differential Differential Comment PT INR APTT D-Dimer Quant (PE/DVT) Sodium 144 Potassium 3.9 Chloride 113 H D Carbon Dioxide 23.8 Anion Gap 7 BUN 24 H Creatinine 1.00 Estimated GFR 55 L POC Glucose 79 97 Random Glucose 96 Hemoglobin A1c Lactic Acid Calcium 7.8 L D Magnesium Total Bilirubin 0.8 Direct Bilirubin Indirect Bilirubin AST 20 ALT 21 Alkaline Phosphatase 53 Total Creatine Kinase CK-MB (CK-2) Troponin I B-Natriuretic Peptide Total Protein 5.9 L D Albumin 2.9 L D Urine Color Urine Clarity Urine pH Ur Specific [place] Urine Protein Urine Glucose (UA) Urine Ketones Urine Occult Blood Urine Nitrate Urine Bilirubin Urine Urobilinogen Ur Leukocyte Esterase Urine Bacteria Micro UA Comment Ur Microscopic Review Urine Culture Comments 10/30/18 10/30/18 10/30/18 08:20 07:00 00:04 CBC w Diff Auto diff final WBC 5.0 RBC 3.97 L Hgb 11.4 L D Hct 34.7 L MCV 87.4 MCH 28.8 MCHC 32.9 RDW 13.0 Plt Count 196 MPV 8.9 Neut % (Auto) 41.5 Lymph % (Auto) 44.9 H [place] % (Auto) 8.8 H Eos % (Auto) 2.9 Baso % (Auto) 1.9 Neut # (Auto) 2.1 Lymph # (Auto) 2.3 [place] # (Auto) 0.4 Eos # (Auto) 0.1 Baso # (Auto) 0.1 WBC Differential . Differential Comment . PT INR APTT D-Dimer Quant (PE/DVT) Sodium Potassium Chloride Carbon Dioxide Anion Gap BUN Creatinine Estimated GFR POC Glucose 96 Random Glucose Hemoglobin A1c Lactic Acid Calcium Magnesium Total Bilirubin Direct Bilirubin Indirect Bilirubin AST ALT Alkaline Phosphatase Total Creatine Kinase CK-MB (CK-2) Troponin I B-Natriuretic Peptide Total Protein Albumin Urine Color Yellow Urine Clarity Clear Urine pH 5.5 Ur Specific [place] 1.010 Urine Protein Negative Urine Glucose (UA) Negative Urine Ketones Negative Urine Occult Blood Negative Urine Nitrate Positive H Urine Bilirubin Negative Urine Urobilinogen 0.2 Ur Leukocyte Esterase Trace H Urine Bacteria Few H Micro UA Comment Culture indicated Ur Microscopic Review Microscopic reviewed Urine Culture Comments Culture indicated 10/29/18 10/29/18 10/29/18 22:37 17:05 17:05 CBC w Diff WBC RBC Hgb Hct MCV MCH MCHC RDW Plt Count MPV Neut % (Auto) Lymph % (Auto) [place] % (Auto) Eos % (Auto) Baso % (Auto) Neut # (Auto) Lymph # (Auto) [place] # (Auto) Eos # (Auto) Baso # (Auto) WBC Differential Differential Comment PT INR APTT D-Dimer Quant (PE/DVT) Sodium 136 Potassium 4.1 Chloride 104 Carbon Dioxide 20.0 L Anion Gap 12 BUN 36 H Creatinine 2.00 H Estimated GFR 25 L POC Glucose 65 L Random Glucose 91 Hemoglobin A1c Lactic Acid Calcium 9.4 Magnesium 1.9 Total Bilirubin 1.2 H Direct Bilirubin 0.3 H Indirect Bilirubin 0.9 H AST 32 ALT 23 Alkaline Phosphatase 65 Total Creatine Kinase 126 CK-MB (CK-2) 1.3 Troponin I Less than 0.02 L B-Natriuretic Peptide 5 Total Protein 7.7 Albumin 4.0 Urine Color Urine Clarity Urine pH Ur Specific [place] Urine Protein Urine Glucose (UA) Urine Ketones Urine Occult Blood Urine Nitrate Urine Bilirubin Urine Urobilinogen Ur Leukocyte Esterase Urine Bacteria Micro UA Comment Ur Microscopic Review Urine Culture Comments 10/29/18 10/29/18 10/29/18 17:05 17:05 17:00 CBC w Diff Auto diff final WBC 8.3 RBC 4.85 Hgb 13.9 Hct 42.6 MCV 87.8 MCH 28.8 MCHC 32.7 RDW 13.0 Plt Count 262 MPV 9.3 Neut % (Auto) 54.2 Lymph % (Auto) 33.3 [place] % (Auto) 9.9 H Eos % (Auto) 1.0 Baso % (Auto) 1.6 Neut # (Auto) 4.5 Lymph # (Auto) 2.8 [place] # (Auto) 0.8 Eos # (Auto) 0.1 Baso # (Auto) 0.1 WBC Differential . Differential Comment . PT 10.8 INR 1.1 APTT 29.1 D-Dimer Quant (PE/DVT) 0.40 Sodium Potassium Chloride Carbon Dioxide Anion Gap BUN Creatinine Estimated GFR POC Glucose Random Glucose Hemoglobin A1c 5.6 Lactic Acid Calcium Magnesium Total Bilirubin Direct Bilirubin Indirect Bilirubin AST ALT Alkaline Phosphatase Total Creatine Kinase CK-MB (CK-2) Troponin I B-Natriuretic Peptide Total Protein Albumin Urine Color Urine Clarity Urine pH Ur Specific [place] Urine Protein Urine Glucose (UA) Urine Ketones Urine Occult Blood Urine Nitrate Urine Bilirubin Urine Urobilinogen Ur Leukocyte Esterase Urine Bacteria Micro UA Comment Ur Microscopic Review Urine Culture Comments 10/29/18 17:00 CBC w Diff WBC RBC Hgb Hct MCV MCH MCHC RDW Plt Count MPV Neut % (Auto) Lymph % (Auto) [place] % (Auto) Eos % (Auto) Baso % (Auto) Neut # (Auto) Lymph # (Auto) [place] # (Auto) Eos # (Auto) Baso # (Auto) WBC Differential Differential Comment PT INR APTT D-Dimer Quant (PE/DVT) Sodium Potassium Chloride Carbon Dioxide Anion Gap BUN Creatinine Estimated GFR POC Glucose Random Glucose Hemoglobin A1c Lactic Acid 2.0 Calcium Magnesium Total Bilirubin Direct Bilirubin Indirect Bilirubin AST ALT Alkaline Phosphatase Total Creatine Kinase CK-MB (CK-2) Troponin I B-Natriuretic Peptide Total Protein Albumin Urine Color Urine Clarity Urine pH Ur Specific [place] Urine Protein Urine Glucose (UA) Urine Ketones Urine Occult Blood Urine Nitrate Urine Bilirubin Urine Urobilinogen Ur Leukocyte Esterase Urine Bacteria Micro UA Comment Ur Microscopic Review Urine Culture Comments Preliminary micro results at discharge 10/29/18 17:05 Aerobic Blood Culture - Preliminary Blood - Peripheral No growth in 1 day Anaerobic Blood Culture - Preliminary No growth in 1 day 10/29/18 17:00 Aerobic Blood Culture - Preliminary Blood - Peripheral No growth in 1 day Anaerobic Blood Culture - Preliminary No growth in 1 day - Impressions ITS Impressions Chest X-Ray 10/29/18 17:02 CONCLUSION: No acute intrathoracic disease. Discharge Plan - Discharge Disposition Patient Disposition: 01 Discharge Home - Discharge Condition Condition: Stable - Discharge Order Discharge Orders: Discharge Order (Routine); Ordered 10/30/18 Ordered By: John King - Discharge Details Anticipated Discharge Date: 10/30/18 Discharge Comment: Okay for discharge if patient tolerated lunch and is drinking fluids. Patient will need to follow-up with primary care on Saturday with repeat labs. - Physicians Team Primary Care Provider: Primary Care Physici,No Attending Provider: John King Other Providers: [employer]
== END 2018-10-30 18:59 | disposition home or self-care (01) | DRG 684 ==
LOC: PHED 16:30 → PHEDA 16:30 → PH3 20:10
PROVIDERS: ADMIT Internal Medicine; ATTEND Internal Medicine
CPT/HCPCS: 71010; 71045; 80053; 81001; 82247; 82248; 82550; 82552; 82948; 82962; 83036; 83520; 83605; 83735; 83880; 84484; 85025; 85379; 85610; 85730; 87040; 87077; 87086; 87186; 87275; 87276; 87804; 90760; 93005; 96360; 99285; J7030